=== PATIENT | male | born 1990 | race American Indian/Alaskan Native ===

== ENCOUNTER 2020-01-01 09:53 | Emergency (ER) | payer SELFPAY ==
--- NOTE | 2020-01-01 11:30 | EDM.PDOC ---
ED HPI GENERAL MEDICAL PROBLEM - General Chief Complaint: General Stated Complaint: TOLD TO COME IN FOR COVID TEST Time Seen by Provider: 01/01/20 10:30 Source of Information: Reports: Patient History Limitations: Reports: No Limitations - History of Present Illness INITIAL COMMENTS - FREE TEXT/NARRATIVE: pt has been working double shifts. He has the chills and has diarrhea today. He does not have a fever. Onset: Today, Sudden Duration: Hour(s): Location: Reports: Abdomen, Other (pt had 3 loose stools this am. ) Associated Symptoms: Reports: Other (pt had diarrhea. ) - Related Data Allergies Allergy/AdvReac Type Severity Reaction Status Date / Time Penicillins AdvReac Hives Verified 01/01/20 10:06 Home Meds: Home Meds NK [No Known Home Meds] 01/01/20 [History] Past Medical History HEENT History: Reports: Impaired Vision Gastrointestinal History: Reports: GERD - Past Surgical History Head Surgeries/Procedures: Reports: None HEENT Surgical History: Reports: None GI Surgical History: Reports: None Social & Family History - Tobacco Use Tobacco Use Status *Q: Former Tobacco User Used Tobacco, but Quit: Yes Month/Year Tobacco Last Used: 04/2017 Second Hand Smoke Exposure: No - Caffeine Use Caffeine Use: Reports: Coffee, Soda - Recreational Drug Use Recreational Drug Use: No ED ROS GENERAL - Review of Systems Review Of Systems: See Below Constitutional: Reports: Chills, Malaise, Other ( diarrhea) HEENT: Reports: No Symptoms Respiratory: Reports: No Symptoms Cardiovascular: Reports: No Symptoms Endocrine: Reports: No Symptoms GI/Abdominal: Reports: Diarrhea, Other ( some cramping. ) : Reports: No Symptoms Musculoskeletal: Reports: No Symptoms Skin: Reports: No Symptoms Neurological: Reports: No Symptoms Psychiatric: Reports: No Symptoms ED EXAM, GENERAL - Physical Exam Exam: See Below Free Text/Narrative:: pt arrived with a history of chilling and having diarrhea. He was at work at [employer]. 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 Exam Limited By: No Limitations General Appearance: Alert, Anxious Ears: Normal TMs Nose: Normal Inspection Throat/Mouth: Normal Inspection Head: Atraumatic Neck: Normal Inspection Respiratory/Chest: No Respiratory Distress Cardiovascular: Regular Rate, Rhythm GI/Abdominal: Soft, Non-Tender (Male) Exam: Deferred Rectal (Males) Exam: Deferred Back Exam: Normal Inspection Extremities: Normal Inspection Neurological: Alert, Oriented, Normal Cognition Course - Vital Signs Last Recorded V/S: Last Vital Signs Temp 36.2 C 01/01/20 10:07 Pulse 66 01/01/20 10:07 Resp 16 01/01/20 10:07 BP 135/92 H 01/01/20 10:07 Pulse Ox 100 01/01/20 10:07 - Orders/Labs/Meds Labs: Laboratory Tests 01/01/20 01/01/20 Range/Units 10:31 10:59 WBC 5.7 (4.5-11.0) K/uL RBC 5.07 (4.30-5.90) M/uL Hgb 14.6 (12.0-15.0) g/dL Hct 43.8 (40.0-54.0) % MCV 86 (80-98) fL MCH 29 (27-31) pg MCHC 33 (32-36) % Plt Count 298 (150-400) K/uL Neut % (Auto) 59 (36-66) % Lymph % (Auto) 28 (24-44) % [place] % (Auto) 4 (2-6) % Eos % (Auto) 8 H (2-4) % Baso % (Auto) 1 (0-1) % SARS CoV-2 RNA Rapid ROSALIE Negative - Re-Assessments/Exams Free Text/Narrative Re-Assessment/Exam: 01/01/20 11:34 pt had a low wbc. 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 A covid test was obtained which was neg. Departure - Departure Time of Disposition: 11:40 Disposition: Home, Self-Care 01 Condition: Fair Clinical Impression: Gastroenteritis - Discharge Information Referrals: PCP,None [Primary Care Provider] - Forms: ED Department Discharge Care Plan Goals: push fluids,donot finish working the double shift. tylenol for body aches, imodium if diarrhea gets worse. Sepsis Event Note (ED) - Evaluation Sepsis Screening Result: No Definite Risk
== END 2020-01-01 11:37 | disposition home or self-care (01) ==
LOC: JP.ED 09:53
DX: K52.9 Noninfective gastroenteritis and colitis, unspecified (principal); Z20.828 Contact with and (suspected) exposure to other viral communicable diseases; Z88.0 Allergy status to penicillin; Z87.891 Personal history of nicotine dependence
CPT/HCPCS: 36415; 85025; 99282; 99284; U0002